=== PATIENT | female | born 1995 | race Caucasian/White ===

== ENCOUNTER 2024-09-07 20:08 | Emergency (ER) | payer MEDICAID, OTHER ==
[~2024-09-07] VITALS: Ht 154.9 cm; Wt 58.5 kg
[2024-09-07 20:25] VITALS: BP 125/91; PULSE 113; RESP 20; TEMP 98.4; O2SAT 94
[2024-09-07] MEDS: CLINDAMYCIN 300MG IV 50 ML IV ONE (20:30)
--- NOTE | 2024-09-07 21:02 | DVH ---
EXAM: CT MAXILLOFACIAL WITHOUT CLINICAL HISTORY: facial swelling TECHNIQUE: Multiple contiguous axial images were obtained of the facial bones without intravenous con trast. Sagittal and coronal reformations were obtained. This exam was performed according to our depa rtmental dose optimization program. Up-to-date CT equipment and radiation dose reduction techniques a re utilized as appropriate. Comparison: None FINDINGS: There is subcutaneous edema in the left submandibular neck. The mastoid air cells and visualized para nasal sinuses are well-aerated. The globes and orbits are normal in appearance without CT evidence of orbital hemorrhage. The extraocular muscles are intact. No facial, mandibular, or orbital wall fract ure is identified. The temporomandibular joints are maintained. IMPRESSION: 1. No evidence of acute facial fracture or orbital hemorrhage. 2. Subcutaneous edema in the left submandibular neck. No discrete fluid collection or soft tissue gas .
[2024-09-07 21:13] LABS: Basophils # (auto) 0 10 ^3/uL (0-0.2); Basophils % (auto) 0.3 % (0.0-2.0); Eosinophils # (auto) 0.1 10 ^3/uL (0-0.8); Eosinophils % (auto) 0.9 % (0.0-7.0); Hematocrit 45.6 % (36.0-46.0); Hemoglobin 16.1 g/dL (12.2-16.2); Lymphocytes # (auto) 2.4 10 ^3/uL (0.4-5.4); Lymphocytes % (auto) 16.5 % (10.0-50.0); Mean Corpuscular Hemoglobin 32.6 pg (28.0-32.0); Mean Corpuscular Hgb Conc. 35.2 g/dL (32.0-36.0); Mean Corpuscular Volume 92.5 fL (80.0-100.0); Monocytes # (auto) 0.8 10 ^3/uL (0-1.3); Monocytes % (auto) 5.4 % (0.0-12.0); Neutrophils # (auto) 11.1 10 ^3/uL (1.6-8.6); Neutrophils % (auto) 76.9 % (37.0-80.0); Nucleated Red Blood Cells % 0.1 %; Platelet Count (auto) 282 10^3/uL (140-450); Red Blood Cells 4.94 10^6/uL (4.0-5.20); Red Cell Distribution Width 12.5 % (11.8-14.3); White Blood Cell 14.5 10^3/uL (4.4-10.8)
[2024-09-07 21:18] LABS: Alanine Aminotransferase 10 U/L (7-40); Albumin 4.6 g/dL (3.2-4.8); Alkaline Phosphatase 102 U/L (46-116); Anion Gap 11 (5-15); Aspartate Aminotransferase 13 U/L (13-40); BUN/Creatinine Ratio 12.5 (10.0-20.0); Bilirubin, Total 0.7 mg/dL (0.2-1.0); Blood Urea Nitrogen 10 mg/dL (9-23); Carbon Dioxide 25 mmol/L (20-31); Chloride 103 mmol/L (98-107); Potassium 3.5 mmol/L (3.5-5.1); Sodium 139 mmol/L (136-145); Total Protein 7.8 g/dL (5.7-8.2)
--- NOTE | 2024-09-07 21:27 | ED.PDOC ---
History of Present Illness HPI Comments 28 y/o F, with no prior medical history presents to the ED for CC of tooth pain. Patient states, that she has been experiencing tooth pain x3 weeks. Patient relays, new onset symptoms of left sided facial swelling x3days. Patient comments, that she took 1 pill of Amoxicillin today (09/07/24); which she bought from an animal supply store. Patient denies oral discharge, ear ringing, or headache. No other symptoms or modifying factors present at this time. 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 Hx Family History Family History: Unknown Social History Smoker: Non-Smoker Alcohol: Denies ETOH Use Drugs: Denies Drug Use Lives In: Home Constitutional: denies: chills, diaphoresis, fatigue, fever, malaise, sweats, weakness, others EENTM: reports: mouth pain, mouth swelling; denies: blurred vision, double vision, ear bleeding, ear discharge, ear drainage, ear pain, ear ringing, eye pain, eye redness, hearing loss, nasal discharge, nose bleeding, nose congestion, nose pain, photophobia, tearing, throat pain, throat swelling, voice changes, others Respiratory: denies: cough, hemoptysis, orthopnea, SOB at rest, shortness of breath, SOB with excertion, stridor, wheezing, others Cardiovascular: denies: chest pain, dizzy spells, diaphoresis, Dyspnea on exertion, edema, irregular heart beat, left arm pain, lightheadedness, palpitations, PND, syncope, others Gastrointestinal: denies: abdomen distended, abdominal pain, blood streaked bowels, constipated, diarrhea, dysphagia, difficulty swallowing, hematemesis, melena, nausea, poor appetite, poor fluid intake, rectal bleeding, rectal pain, vomiting, others Genitourinary: denies: abnormal vagina bleeding, burning, dyspareunia, dysuria, flank pain, frequency, hematuria, incontinence, pain, , vagina discharge, urgency, others Neurological: denies: dizziness, fainting, headache, left sided numbness, left sided weakness, numbness, paresthesia, pre-existing deficit, right sided numbness, right sided weakness, seizure, speech problems, tingling, tremors, weakness, others Musculoskeletal: denies: back pain, gout, joint pain, joint swelling, muscle pain, muscle stiffness, neck pain, others Integumetry: denies: bruises, change in color, change in hair/nails, dryness, laceration, lesions, lumps, rash, wounds, others Allergic/Immunocompromised: denies: Difficulty Healing, Frequent Infections, Hives, Itching, others Hematologic/Lymphatic: denies: anemia, blood clots, easy bleeding, easy bruising, swollen glands, others Endocrine: denies: excessive hunger, excessive sweating, excessive thirst, excessive urination, flushing, intolerance to cold, intolerance to heat, unexplained weight gain, unexplained weight loss, others Psychiatric: denies: anxiety, bipolar disorder, depression, hopeless, panic disorder, schizophrenia, sleepless, suicidal, others All Other Systems: Reviewed and Negative Physical Exam General Appearance: No Apparent Distress, Normal HEENT: Normal ENT Inspection, Other (LEFT JAW SWELLING) Neck: Full Range of Motion, Non-Tender, Normal, Normal Inspection Respiratory: Chest Non-Tender, Lungs Clear, No Accessory Muscle Use, No Respiratory Distress, Normal Breath Sounds Cardiovascular: No Edema, No Murmur, No Gallop, Normal Peripheral Pulses, Regular Rate/Rhythm Breast Exam: Deferred Gastrointestinal: No Organomegaly, Non Tender, No Pulsatile Mass, Normal Bowel Sounds, Soft Genitalia: Deferred Pelvic: Deferred Rectal: Deferred Extremities: No calf tenderness, Normal capillary refill, Normal inspection, Normal range of motion, Non-tender, No pedal edema Musculoskeletal : Apperance: Normal Neurologic: Alert, No Motor Deficits, Normal Affect, Normal Mood, No Sensory Deficits Cerebellar Function: Normal Reflexes: Normal Skin: Dry, Normal Color, Warm Lymphatic: No Adenopathy Was a procedure done? Was a procedure done?: No Differential Dx Considerations may include: DENTAL ABSCESS, DENTAL INFECTION, SINUS INFECTION X-Ray, Labs, Meds, VS Vital Signs Date Time Temp Pulse Resp B/P (MAP) Pulse Ox O2 Delivery O2 Flow Rate FiO2 09/07/24 20:25 98.4 113 20 125/91 (102) 94 98.4 Lab Test 09/07/24 20:37 Range/Units White Blood Count 14.5 H 4.4-10.8 10^3/uL Red Blood Count 4.94 4.0-5.20 10^6/uL Hemoglobin 16.1 12.2-16.2 g/dL Hematocrit 45.6 36.0-46.0 % Mean Corpuscular Volume 92.5 80.0-100.0 fL Mean Corpuscular Hemoglobin 32.6 H 28.0-32.0 pg Mean Corpuscular Hemoglobin Concent 35.2 32.0-36.0 g/dL Red Cell Distribution Width 12.5 11.8-14.3 % Platelet Count 282 140-450 10^3/uL Mean Platelet Volume 8.1 6.9-10.8 fL Neutrophils (%) (Auto) 76.9 37.0-80.0 % Lymphocytes (%) (Auto) 16.5 10.0-50.0 % Monocytes (%) (Auto) 5.4 0.0-12.0 % Eosinophils (%) (Auto) 0.9 0.0-7.0 % Basophils (%) (Auto) 0.3 0.0-2.0 % Neutrophils # (Auto) 11.1 H 1.6-8.6 10 ^3/uL Lymphocytes # (Auto) 2.4 0.4-5.4 10 ^3/uL Monocytes # (Auto) 0.8 0-1.3 10 ^3/uL Eosinophils # (Auto) 0.1 0-0.8 10 ^3/uL Basophils # (Auto) 0 0-0.2 10 ^3/uL Nucleated Red Blood Cells 0.1 % Sodium Level 139 136-145 mmol/L Potassium Level 3.5 3.5-5.1 mmol/L Chloride Level 103 98-107 mmol/L Carbon Dioxide Level 25 20-31 mmol/L Anion Gap 11 5-15 Blood Urea Nitrogen 10 9-23 mg/dL Creatinine 0.80 0.550-1.02 mg/dL Glomerular Filtration Rate Calc 103 >90 mL/min BUN/Creatinine Ratio 12.5 10.0-20.0 Serum Glucose 107 H 74-106 mg/dL Calcium Level 10.0 8.7-10.4 mg/dL Total Bilirubin 0.7 0.2-1.0 mg/dL Aspartate Amino Transferase (AST) 13 13-40 U/L Alanine Aminotransferase (ALT) 10 7-40 U/L Alkaline Phosphatase 102 46-116 U/L Total Protein 7.8 5.7-8.2 g/dL Albumin 4.6 3.2-4.8 g/dL [address] [address] Ph: [phone] DIAGNOSTIC IMAGING Diagnostic Imaging Report : [id number] Signed PATIENT: ZIYAD JARQUINACCT: [id number] UNIT: [id number] : 1995 LOC: ER ROOM / BED: / AGE / SEX: 28 / F ADM STATUS: REG ER SERVICE 19 ORDERING PHYSICIAN: MAIA SANCHEZ PROCEDURE(s): FAC2C - MAXILLOFACIAL WITHOUT REASON: facial swelling ORDER NUMBER(s): [id number], ACCESSION NUMBER(s): [id number] EXAM: CT MAXILLOFACIAL WITHOUT CLINICAL HISTORY: facial swelling TECHNIQUE: Multiple contiguous axial images were obtained of the facial bones without intravenous contrast. Sagittal and coronal reformations were obtained. This exam was performed according to our departmental dose optimization program. Up-to-date CT equipment and radiation dose reduction techniques are utilized as appropriate. Comparison: None FINDINGS: There is subcutaneous edema in the left submandibular neck. The mastoid air cells and visualized paranasal sinuses are well-aerated. The globes and orbits are normal in appearance without CT evidence of orbital hemorrhage. The extraocular muscles are intact. No facial, mandibular, or orbital wall fracture is identified. The temporomandibular joints are maintained. IMPRESSION: 1. No evidence of acute facial fracture or orbital hemorrhage. 2. Subcutaneous edema in the left submandibular neck. No discrete fluid collection or soft tissue gas. ATED BY: ALEX RONQUILLO MD DICTATED DATE/TIME: 09/07/242099 SIGNED BY: ALEX RONQUILLO MD SIGNED DATE/TIME: 09/07/242099 CC: X-Ray, Labs, Meds, VS Comment Imaging: X-rays and CT scans were reviewed and interpreted by this provider, imaging shows no fractures and no pathological disease. Pending radiology review. Laboratory: Labs reviewed and interpreted by this provider. Elevated white count Patient has prior medical visits reviewed. Med reconciliation performed Vital signs reviewed Patient will be started on clindamycin q.i.d. Advised she was if symptoms worsen in the next 24-48 hours she was treated in the emergency department. Time of 1ST Reevaluation: 21:30 Reevaluation 1ST: Unchanged Patient Education/Counseling: Diagnosis, Treatment, Need For Follow Up (Follow up in 24 hours for recheck) Family Education/Counseling: No Family Present Departure 1 Departure Time of Disposition: 22:35 Impression: Primary Impression: Dental abscess Disposition: HOME / SELF CARE / HOMELESS Condition: Fair e-Prescriptions Clindamycin Hcl (Clindamycin Hcl) 300 Mg Cap 300 MG PO QID for 10 Days, #40 CAP Prov: MAIA SANCHEZ 09/07/24 Discharged With: Self Critical Care Note Critical Care Time?: No Stability Stability form required: No Heart Score Heart Score: Heart Score Response (Comments) Value History N/A 0 EKG N/A 0 Age N/A 0 Risk Factors N/A 0 Troponin N/A 0 Total 0 I personally scribed for MAIA SANCHEZP ([email or web address]) on 09/07/24 at 21:27. Electronically submitted by Melonie Benson ([employer] I personally scribed for MAIA SANCHEZ [employer]AURANT FLOOR MANAGER ([email or web address]) on 09/07/24 at 21:28. Electronically submitted by Melonie Benson ([employer]). MAIA SANCHEZ RESTAURANT FLOOR MANAGER Sep 07, 2024 21:27
[2024-09-07 21:31] LABS: Glucose 107 mg/dL (74-106)
[2024-09-07] MEDS ORDERED: CLIN1CAP70 PO (22:36)
== END 2024-09-08 02:52 | disposition home or self-care (01) ==
LOC: ER 20:08
DX: K04.7 Periapical abscess without sinus (principal)
CPT/HCPCS: 36415; 70486; 80053; 85025; 87040